=== PATIENT | female | born 1995 | race Caucasian/White ===

== ENCOUNTER 2019-02-11 22:58 | Outpatient (CLI) | payer OTHER ==
[~2019-02-11] VITALS: Ht 157.5 cm; Wt 60.9 kg
[2019-02-11] MEDS ORDERED: LR 1,000 ML IV ONE (23:30)
[2019-02-11] MEDS ORDERED: ONDANSETRON 4MG/2ML VIAL (J2405) IV SCH (23:30)
[2019-02-12 00:22] LABS: HEMATOCRIT 37.1 % (36.0-47.0); HEMOGLOBIN 12.6 g/dl (12.0-15.5); MEAN CORPUSCULAR HEMOGLOBIN 30.4 pg (27.0-33.0); MEAN CORPUSCULAR VOLUME 89.4 fl (80.0-96.0); PLATELET COUNT, AUTOMATED 189 10^3/uL (150-450); RED BLOOD COUNT 4.15 10^6/uL (4.00-5.40); WHITE BLOOD COUNT 14.1 10^3/uL (4.0-10.0)
[2019-02-12 01:00] LABS: ALBUMIN 3.1 GM/DL (3.2-5.2); ALT/SGPT 281 U/L (12-78); BILIRUBIN,TOTAL 1.2 MG/DL (0.2-1.0); BLOOD UREA NITROGEN 7 MG/DL (7-18); CALCIUM LEVEL 8.4 MG/DL (8.5-10.1); CARBON DIOXIDE LEVEL 27 MEQ/L (21-32); CHLORIDE LEVEL 102 MEQ/L (98-107); CREATININE FOR GFR 0.55 MG/DL (0.55-1.30); GLOMERULAR FILTRATION RATE > 60.0 (>60); GLUCOSE, FASTING 71 MG/DL (70-100); POTASSIUM SERUM 3.7 MEQ/L (3.5-5.1); SODIUM LEVEL 137 MEQ/L (136-145); TOTAL PROTEIN 6.9 GM/DL (6.4-8.2)
--- NOTE | 2019-02-12 01:29 | IPNPDOC ---
Text Note Date of Service The patient was seen on 02/12/19. NOTE 24 yo G1 at 21+1 weeks gestation presents to L&D with the complaint of ~24 hours of nausea and vomiting. She reports symptoms have been worsening throughout the day and she has vomited numerous times. She denies any recent travel, sick contacts, or ingestion of unusual foods. She denies any other symptoms to include fevers/chills, SOB, chest pain, dysuria, diarrhea. She also denies any abdominal pain. She also denies any obstetric complaints such as vaginal bleeding, leakage of fluid, or contractions. She reports having severe first trimester nausea and vomiting as well. Vitals - HR 83, BP 120/70, T 98.3 General - AAOX3, laying down in bed, NAD Abdomen - Gravid uterus, no fundal tenderness. No RUQ tenderness or RLQ tenderness to palpation. Extremities - No edema FHR: 150s. no ctx on toco Labs: CBC - 189>12.6/37.1<14.1 BMP - 137/3.7--102/27--<71 AST/ALT - 94/281 In triage Ms. Moody had no vomiting and was able to tolerate PO without issues. She felt much improved after IV fluids and IV zofran. Suspect Viral GI syndrome. Note made of elevated liver enzymes, though this is not uncommon in patients with significant nausea and vomiting. She has clinical evidence of gallbladder disease or appendicitis. I did recommend she call and schedule a fo llow up appointment in the office for next week and also considering repeating liver panel when feeling better. Patient to return to care for fevers/chills, SOB, persistent vomiting, or any other urgent concerns. All patient questions answered. eJnny Perez, DO A-FIB/CHADSVASC A-FIB History Current/History of A-Fib/PAF?: No VS,Fishbone, I+O VS, Fishbone, I+O Laboratory Tests 02/11/19 23:44 Red Blood Count 4.15, Mean Corpuscular Volume 89.4, Mean Corpuscular Hemoglobin 30.4, Mean Corpuscular Hemoglobin Concent 34.0, Red Cell Distribution Width 14.4, Calcium Level 8.4 L, Aspartate Amino Transf (AST/SGOT) 94 H, Alanine Aminotransferase (ALT/SGPT) 281 H, Alkaline Phosphatase 86, Total Bilirubin 1.2 H, Total Protein 6.9, Albumin 3.1 L JENNY PEREZ DO February 12, 2019 01:29
== END 2019-02-12 01:25 | disposition home or self-care (01) ==
LOC: M LDO 22:58
PROVIDERS: ATTEND Obstetrics & Gynecology
DX: O21.0 Mild hyperemesis gravidarum (principal); Z3A.21 21 weeks gestation of pregnancy
CPT/HCPCS: 36415; 80053; 85027; 96374; G0378; J2405

== ENCOUNTER 2019-06-06 13:26 | Outpatient (CLI) | payer OTHER ==
[~2019-06-06] VITALS: Ht 157.5 cm; Wt 74.2 kg
[2019-06-06] MEDS ORDERED: PRENTAB9 PO (13:48)
[2019-06-06] MEDS ORDERED: TUMS750C22 PO (13:48)
[2019-06-06 13:51] VITALS: BP 122/60
[2019-06-06] MEDS ORDERED: BICITRA 30ML SOLN UDC PO ONE (15:00)
[2019-06-06] MEDS ORDERED: AZITHROMYCIN INJ 500 MG, VIAL MATE ADAPTER 1 EACH in D5W 250 ML IV ONE (15:00)
--- NOTE | 2019-06-06 15:07 | IPNPDOC ---
Text Note Date of Service The patient was seen on 06/06/19. NOTE OB Considerations: - Centering PM Keke is a 24yo at 37+3wks by first timester US (SMITHA [id number]) presents for Decreased movement. She reports that she has not been feeling baby move much today. She tried performed kick counts and did not get t he 10 in 2hrs. She reports drinking at least 8 - 8oz glasses of water today. She reports irregular contractions. She denies headache, vision changes, RUQ pain, LOF or vaginal bleeding. VS: reviewed: normotensive, nontachycardic, afebrile GEN: WNWD, NAD ABD: Soft, Gravid, NT EXT: no Edema Limited Bedside US Cephalic presentation, Anterior placenta, +FCA, ADELITA 14.3cm Reactive NST, 150bpm, Moderate Variability, + accelerations, - decelerations Paint: rare contractions A/P: SIUP at 37+3wks presenting for DFM - resolved in triage. VS WNL, Reactive NST, ADELITA WNL. - Continue routine care - Discussed strict return precautions and labor precautions - Discussed kick counts - Follow up as scheduled on Se DO ANGEL Drew,Marina, I+O VSMarina, I+O Vital Signs Date Time Temp Pulse Resp B/P (MAP) Pulse Ox O2 Delivery O2 Flow Rate FiO2 06/06/19 13:51 97.8 86 18 122/60 (80) MISTY OWEN DO Jun 06, 2019 15:07
== END 2019-06-06 14:46 | disposition home or self-care (01) ==
LOC: M LDO 13:26
PROVIDERS: ATTEND Obstetrics & Gynecology
DX: O36.8130 Decreased fetal movements, third trimester, not applicable or unspecified (principal); Z3A.37 37 weeks gestation of pregnancy
CPT/HCPCS: 59025; 76815; G0378; G0463

== ENCOUNTER 2019-06-28 20:36 | Inpatient (IN) | payer OTHER ==
[~2019-06-28] VITALS: Ht 157.5 cm; Wt 76.4 kg
[~2019-06-28 20:36] MED LIST: PRENTAB9 PO; TUMS750C22 PO
[2019-06-28 21:01] VITALS: BP 139/76
[2019-06-28] MEDS ORDERED: LACTATED RINGER'S 1000 ML IV STA (21:34)
[2019-06-28] MEDS ORDERED: ACETAMINOPHEN 500 MG TAB PO ONE (21:45)
--- NOTE | 2019-06-28 22:00 | HPEPDOC ---
Obstetrical History & Physical General Date of Admission History of Present Illness OB Considerations: - DFM - Centering Keke is a 24yo at 40+4wks by 9wk US (SMITHA [id number]) presents for Decreased Movement. She was seen early today in clinic for DFM and had a RNST and normal ADELITA. She went home, started to feel more nauseated and persistent headache, frontal, has not tried relieving factors. She reports no movement since leaving the office today. She denies fevers, headache, chills, ctx, LOF, or vaginal bleeding. 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 history Past Medical History Medical History Denies Surgical History: Other (Ovarian Cystectomy - 2007) Family History Significant Family History: No pertinent family hx Social History Marital Status: Family situation: Spouse/partner home Psychosocial History: No pertinent psych hx * Smoker: non-smoker Alcohol: Denies Drugs: denies Imunizations Tdap status: current Influenza Status: needs Allergies Coded Allergies: No Known Allergies (Unverified , 02/11/19) Medications Scheduled No.137/Iron/Folic Acd ( Vitamin Tablet) 1 Each Tablet, 1 TAB PO DAILY Scheduled PRN Calcium Carbonate (Tums) 300 Mg Tab.chew, 1 TAB PO BIDP PRN for HEARTBURN Physical Examination Physical Examination GENERAL: Alert and oriented times three. ABDOMEN: Gravid and non-tender to touch. FETUS: Is vertex (VTX) by Exam/Bradley. EXTREMITIES: No edema. Pelvis Adequate for trial of labor EFW 3600gm TAUS: Cephalic, +FCA, Anterior Placenta, ADELITA 6.8cm Laboratory Data Urine Culture: No Growth Pertinent Laboratoy Data Blood Type: O+ RBC Antibody Screen: Negative HIV: Negative Hepatitis B: Negative Hepatitis C: Unknown Rapid Plasma Reagin: Nonreactive Rubella: Immune Varicella: Immune Chlamydia/Gonorrhea: Negative Group B Streptococcus: Negative Quad Screen Test: Declined Cystic Fibrosis: Declined Anatomy Ultrasound Ultrasound Date: February 08, 2019 Placenta Location: Anterior Normal Anatomy: Yes Placenta Previa: No Steroid Therapy Steroid Therapy: No Vaginal Examination Dilation: 2cm Effacement: 50% Station: -3 Cervical Consistency: Soft Cervical Position: Posterior Presentation: Cephalic presentation Position: Vertex (occiput) Assessment Heart Rate (FHR): 140 Variability: Moderate Accelerations: Positive Decelerations: Late (one) Tocometer Contractions: Yes Frequency: irregular Multi-drug resistant Organism: No history of MDRO Assessment/Plan Assessment Keke is a 24yo at 40+4wks, Cat II FHT with one late deceleration in the setting of Term Decreased Movement. Moderate variability with accelerations now, resolved late with position changes. However, given Cat II on presentation with DFM at term, recommended admission with induction of labor. Plan Admit and orient. Fibre Optic Cable Splicer and consent. Continuous Monitoring. VS and I&O per protocol. Diet: Clear. Group B Streptococcus (GBS) [negative]. Labs and intravenous (IV) per unit protocol. Counseled on Pitocin and induction of labor (IOL). Lactated Ringers (LR): Bolus [1000] mL, then at [125] mL/hr. IOL Start with FB. Start pitocin with delivery of the FB. Faby Owen DO. Labor and Delivery Counseling Counseled patient on IOL, Transfusions and risk of transfusions (reactions and blood borne infections), monitoring (external and internal), infection and need for antibiotics, obstetric lacerations, operative deliveries (forceps and vacuum) and indication for section. Patient verbalized understanding and all questions were answered to patient's apparent satisfaction. FABY OWEN DO Jun 28, 2019 22:00
[2019-06-28 22:38] VITALS: BP 133/81
[2019-06-28 23:06] LABS: HEMATOCRIT 35.9 % (36.0-47.0); MEAN CORPUSCULAR HEMOGLOBIN 28.4 pg (27.0-33.0); MEAN CORPUSCULAR HGB CONC 33.4 g/dl (32.0-36.5); MEAN CORPUSCULAR VOLUME 84.9 fl (80.0-96.0); PLATELET COUNT, AUTOMATED 144 10^3/uL (150-450); RED BLOOD COUNT 4.23 10^6/uL (4.00-5.40); WHITE BLOOD COUNT 9.9 10^3/uL (4.0-10.0)
[2019-06-29] VITALS (38 sets, daily range): BP systolic 92–199; BP diastolic 50–93
[2019-06-29] MEDS: LR 1,000 ML IV SCH ×3 (00:05→17:24)
[2019-06-29] MEDS ORDERED: OXYTOCIN 30 UNITS IN 0.9% NaCl 500ML IV BAG (J2590) As Ordered ONE (13:35)
[2019-06-29] MEDS ORDERED: OXYTOCIN DRIP 30 UNITS in IV 1 EA IV SCH (14:00)
--- NOTE | 2019-06-29 15:54 | IPN ---
DATE: 06/29/2019 This lady is a 24-year-old, 2, para 0, who is at 40 and 5 weeks of gestation, came in because of decreased movement from the clinic, and she had a normal amniotic fluid index (ADELITA) but a category 2 strip. She was brought into labor and delivery and after counseling it was elected to go ahead and have induction of labor. She had a category 2 heart tracing with one late decelerations in the setting of term, decreased movement, moderate variability. She has had induction of labor with [place] bulb and she was left overnight. Nursing noted a category 1 strip. No contractions were noted at all. At 1300 hours, 06/29/2019, examination revealed no change the cervix. No bloody show. Category 1 strip. Therefore, we decided to augment her with Pitocin and if there is appropriate contractions remove the [place] catheter, do an artifical rupture of membranes (AROM) to evaluate amniotic fluid status. She is group B streptococcus (GBS) negative. The rest examination unremarkable. The patient expressed understanding care of procedure and the plan of care. Her vital signs at the present time her blood pressure is 125/63, respirations are 18, pulse 88, temperature is 98.0. Her hemoglobin is 12.0, hematocrit 35.9 and platelets are 144. White count is 9.9. In summary, we have an early term gestation with a nonreassuring heart category 2 for induction of labor.
--- NOTE | 2019-06-29 18:18 | IPN ---
DATE: 06/29/2019 This lady was reassessed at 1700 hours. She had a [place] bulb placed because of induction of labor, decreased movement and late decelerations. She did apparently have an ADELITA of 6.1 but had a category II strip. We removed the [place] bulb catheter. The cervix is very posterior 2 cm -3 station. With difficulty we did an Artificial rupture of membranes (AROM). We had meconium stained liquor which is thick, pasty meconium. No particulate and no runny indicating recent bowel movement. Category II strip was noted with increasing fluids. Baby seemed to appreciate that gesture and with oxygen and increased fluids we came back to a category one strip. Our plan of management is to continue low-dose Pitocin and reevaluate the patient in 2 hours time. Her blood pressure presently is 127/74, respirations 18, pulse 75, temperature 98.0. In summary we have an early term with some category II strips, reduced variability. Anticipate slow progress.
[2019-06-29] MEDS ORDERED: FENTANYL 2MCG/ML ROPIVACAINE 0.2% IN 0.9% NACL 100ML IVBAG As Ordered ONE (20:07)
[2019-06-29] MEDS ORDERED: ONDANSETRON 4MG/2ML VIAL (J2405) IV PRN (21:01)
[2019-06-29] MEDS ORDERED: diphenhydrAMINE INJ 50MG/ML VIAL (J1200) IV PRN (21:01)
[2019-06-29] MEDS ORDERED: EPIDURAL/PCA KEYS XX PRN (21:01)
[2019-06-29] MEDS ORDERED: EPIDURAL COMMENT XX SCH (21:01)
[2019-06-29] MEDS ORDERED: REFRIGERATOR IV KEYS XX PRN (21:01)
[2019-06-29] MEDS ORDERED: ePHEDrine SULFATE 25 MG/5 ML(5MG/ML) SYRINGE IV PRN (21:01)
[2019-06-29] MEDS ORDERED: NALOXONE INJ 0.4 MG/1 ML VIAL (J2310) IV PRN (21:01)
[2019-06-29] MEDS ORDERED: LACTATED RINGER'S 1000 ML IV PRN (21:01)
[2019-06-29] MEDS ORDERED: FENTANYL/ROPIVACAINE/NACL BAG 100 ML EPIDURAL SCH (21:01)
--- NOTE | 2019-06-29 22:15 | IPN ---
DATE: 06/29/2019 Evaluating Mrs. Mcadams post epidural. This lady had a [place] bulb placed because of induction of labor, decreased movement, late decelerations. She had an epidural placed. She has a category one strip with good contractions. She is presently 2 cm anterior with molding. No evidence of amniotic fluid. Meconium stained liquor was noted. Pitocin is at 6 milliunits per minute, and she is having adequate contractions for same. Epidural is taking effect. Her blood pressure presently is 117/55, respirations 18, pulse 77, temperature is 98.2. Our plan is to recheck her in 3 or 4 hours and increase the Pitocin if needed. Presently safe to proceed. The patient expresses understanding of the plan of care.
--- NOTE | 2019-06-29 23:55 | IPN ---
DATE: 06/29/2019 This lady had induction of labor for decreased movement and had one late deceleration. She has been at 2 cm anterior with molding for a significant period of time. She was on 6 milliunits of Pitocin. She was evaluated post epidural, and she was found to be fully dilated at a minus one station. No amniotic fluid was noted. Category one strip with some tachycardia at 160. However, safe to proceed, and we have dialed down the Pitocin to 4 milliunits, and it appears that we were having more effective contractions. Blood pressure presently is 127/63, respirations are not recorded, pulse is 89, temperature is not recorded. The last temperature was at 2015 hours, and it was 97.0. Our plan is to let her labor down. Anticipate, if she has good pushing, to have a vaginal delivery. Safe to proceed.
[2019-06-30] VITALS (7 sets, daily range): BP systolic 126–152; BP diastolic 57–104
[2019-06-30] MEDS ORDERED: OXYTOCIN DRIP 30 UNITS in IV 1 EA IV SCH (01:41)
[2019-06-30] MEDS ORDERED: ANUSOL HC CREAM 30GM TOP PRN (01:45)
[2019-06-30] MEDS ORDERED: RHOGAM 300 MCG (1500 IU) INJ (J2790) IM SCH (01:45)
[2019-06-30] MEDS ORDERED: DIBUCAINE 1% OINTMENT 30GM TOP PRN (01:45)
[2019-06-30] MEDS ORDERED: IBUPROFEN 600 MG TAB PO PRN (01:45)
[2019-06-30] MEDS ORDERED: METHYLERGONOVINE MALEATE 0.2 MG TAB PO PRN (01:45)
[2019-06-30] MEDS ORDERED: MEASLES,MUMPS,RUBELLA VACCINE INJ (MMR-II) (90707) SC SCH (01:45)
[2019-06-30] MEDS ORDERED: OXYTOCIN INJ 10 UNITS/ML VIAL (J2590) IV ONE (01:45)
[2019-06-30] MEDS ORDERED: DOCUSATE SODIUM 100 MG CAP PO PRN (01:45)
[2019-06-30] MEDS ORDERED: ACETAMINOPHEN TAB 650MG DOSE (2X325MG) PO PRN (01:45)
[2019-06-30] MEDS ORDERED: MOM 30ML SUSPENSION UDC PO PRN (01:45)
[2019-06-30 01:47] LABS: CORD GAS ABE V -5.1; CORD GAS HCO3 V 21.2 MEQ/L; CORD GAS O2 SAT V 67.6 %; CORD GAS PCO2 V 43.5 mmHg; CORD GAS PH V 7.305 UNITS; CORD GAS SBC V 19.6 MEQ/L; CORD GAS TCO2 V 22.5 MEQ/L
[2019-06-30 01:48] LABS: CORD GAS ABE A -4.3; CORD GAS HCO3 A 23.3 MEQ/L; CORD GAS O2 SAT A 46.6 %; CORD GAS PCO2 A 52.6 mmHg; CORD GAS PH A 7.265 UNITS; CORD GAS PO2 A 22.5 mmHg; CORD GAS SBC A 19.8 MEQ/L
[2019-06-30] MEDS: IBUPROFEN 800 MG TAB PO PRN ×2 (02:47→15:39)
[2019-06-30] MEDS ORDERED: OXYTOCIN INJ 10 UNITS/ML VIAL (J2590) As Ordered ONE (02:51)
--- NOTE | 2019-06-30 06:05 | IPN ---
DATE: 06/30/2019 The patient and requested circumcision of their male . After discussing risks and benefits of circumcision, medical and nonmedical indications, penile block and aftercare, expressed understanding of penile block, aftercare and bleeding, signed the consent form. We await clearance by the roving hauler. All questions were answered. 20-minute discussion.
[2019-06-30] MEDS: PRENATAL VITAMINS CHEWABLE TABLET PO SCH (08:03)
[2019-06-30] MEDS: ACETAMINOPHEN 500 MG TAB PO PRN ×2 (08:04→19:05)
--- NOTE | 2019-06-30 09:32 | DN ---
DATE: 06/30/2019 This lady is a 2 now para 1 admitted for induction of labor at 44 weeks of gestation because of decreased movement and nonreassuring tracing. She had an epidural in place had a spontaneous vaginal delivery of a live male weighing 6 pounds 13 ounces 3080 grams of 9 and 9 at 1 and 5 minutes respectfully. Arterial pH was 7.26, base excess is -4.3, venous pH was 7.30, base excess of -5.1. There was terminal meconium at delivery. She required a midline episiotomy because of a tight introitus. Placenta delivered spontaneously thereafter. Three-vessel cord membranes and tissues intact. Anterior posterior lateral foy were normal. Sphincter was tight midline episiotomy was oversewn usual fashion. Good hemostasis was secured. The patient baby tolerating procedure well.
[2019-07-01] MEDS: IBUPROFEN 800 MG TAB PO PRN (02:00)
[2019-07-01 06:03] VITALS: BP 118/73
[2019-07-01 06:41] LABS: HEMATOCRIT 34.7 % (36.0-47.0); HEMOGLOBIN 11.4 g/dl (12.0-15.5); MEAN CORPUSCULAR HEMOGLOBIN 28.1 pg (27.0-33.0); MEAN CORPUSCULAR HGB CONC 32.9 g/dl (32.0-36.5); MEAN CORPUSCULAR VOLUME 85.5 fl (80.0-96.0); PLATELET COUNT, AUTOMATED 143 10^3/uL (150-450); RED BLOOD COUNT 4.06 10^6/uL (4.00-5.40); WHITE BLOOD COUNT 12.8 10^3/uL (4.0-10.0)
--- NOTE | 2019-07-01 06:57 | IPNPDOC ---
Progress Note Date of Service: Jul 01, 2019 Day#: 1 Progress Note Keke is a 24yo [id number] s/p uncomplicated at 40+6wks on 30Jun2019 of a male 6 pounds 13 ounces ([3080] grams) with post vaginal laceration and repair, doing well day # [1]. She has been ambulating, voiding spontaneously without issue and tolerating regular diet. Had first bowel movement. Breast feeding without issue. Reports lochia is like a normal period. Patient is ambulating well. is currently under bili lights. She denies headache, vision changes, RUQ pain. OBJECTIVE: VITAL SIGNS: 2 mild range blood pressures, otherwise normal, afebrile. Alert and oriented times three. Abdomen: Fundus firm at U-1. Soft, NTTP. [Minimal] lochia. ASSESSMENT: Keke is a 24yo [id number] s/p uncomplicated at 40+6wks on 30Jun2019 of a male 6 pounds 13 ounces ([3080] grams) with post vaginal lacer ation and repair, doing well day # [1]. Vitals notable for 2 mild range BP, otherwise normal limits, afebrile, hemodynamically stable with no evidence of infection. If continue to be mild range, would recommend Pre Eclampsia labs - currently no s/sx of Pre Eclampsia. PLAN: 1. Continue Routine care. 2. Tylenol and Motrin for pain. 3. Encourage breast feeding and ambulation. 4. Undecided for contraception. 5. Encouraged hydration, pelvic rest. 6. Discharge to home likely Friday due to Infant needing Bili Lights. Faby Owen, VS, I&O, 24H, Marina Vital Signs/I&O Vital Signs Date Time Temp Pulse Resp B/P (MAP) Pulse Ox O2 Delivery O2 Flow Rate FiO2 07/01/19 06:03 98.3 68 16 118/73 (88) 06/30/19 04:19 99 I&O- Last 24 Hours up to 6 AM 07/01/19 06:00 Intake Total 240 ml Output Total 400 ml Balance -160 ml Laboratory Data 24H LABS Laboratory Tests 2 07/01/19 06:07: Nucleated Red Blood Cells % (auto) 0.0 CBC/BMP Laboratory Tests 07/01/19 06:07 Red Blood Count 4.06, Mean Corpuscular Volume 85.5, Mean Corpuscular Hemoglobin 28.1, Mean Corpuscular Hemoglobin Concent 32.9, Red Cell Distribution Width 15.6 H FABY OWEN DO Jul 01, 2019 06:57
[2019-07-01] MEDS: PRENATAL VITAMINS CHEWABLE TABLET PO SCH (09:00)
[2019-07-01 18:10] VITALS: BP 134/92
[2019-07-02 05:49] VITALS: BP 138/82
[2019-07-02] MEDS ORDERED: DIBU10OI TOP (08:41)
[2019-07-02] MEDS ORDERED: COLA100C5 PO (08:41)
[2019-07-02] MEDS ORDERED: IBUP80TA PO (08:41)
[2019-07-02] MEDS ORDERED: ACET-683 PO (08:41)
[2019-07-02] MEDS: PRENATAL VITAMINS CHEWABLE TABLET PO SCH (09:00)
--- NOTE | 2019-07-02 09:10 | DSES ---
DATE OF ADMISSION: 06/28/2019 DATE OF DISCHARGE: 07/02/2019 This lady is a 24-year-old 2, para 1, had decreased movement and was admitted for induction of labor at 40 and 4 weeks of gestation. She had a spontaneous vaginal delivery with epidural in place of a male 6 pounds 13 ounces 3880 grams scores of 9 and 9 at 1 and 5 minutes, respectively. Arterial pH 7.26, base excess -4.3, venous pH 7.30, base excess -5.1. There was terminal meconium at delivery and the baby required some vigorous suctioning because of swallowing of amniotic fluid. She did have a midline episiotomy, which was oversewn in the usual fashion. Admitting hemoglobin was 12.0, hematocrit 35.9 and platelets 144. Discharge hemoglobin 11.4, hematocrit 34.7 and platelets were 143. Vital signs: Her blood pressure on discharge was 138/82, respirations 16, pulse 91 and temperature 97.3. We discussed phlebitis, cystitis, mastitis, endometritis, cellulitis, diet, exercise, pain management, perineal/breast/wound care. The patient is planning on discussing control at her 6-week checkup. She also has made a 6-week checkup with [facility]. On discharge, she is normocephalic, atraumatic. Neck with full range of motion. Pupils equal and reactive to light. Distal pulses symmetric. No evidence of DVT, PE or superficial phlebitis. Chest is clear bilaterally to the bases. No wheezes or rhonchi. No CVA tenderness. Abdomen is soft. Uterus 2 below. Lochia is moderate. Four quadrant bowel sounds are noted. Perineum is healing. She has no rashes, lesions or pruritus. No arthralgia, myalgia. No complaint joint pain. No complaint cough, wheeze, shortness of breath or dyspnea on exertion. No nausea, vomiting, diarrhea or constipation. No frequency or urgency. In summary, we have a term gestation, delivered a live male discharged to followup in the office in six weeks' time. All questions were answered. [facility]
== END 2019-07-02 12:00 | disposition home or self-care (01) | DRG 807 ==
LOC: M LDO 20:36 → M LDI 22:17 → M OBS 06-30 04:09
PROVIDERS: ADMIT Obstetrics & Gynecology; ATTEND Obstetrics & Gynecology
PROC: 3E0P7GC Introduction of Other Therapeutic Substance into Female Reproductive, Via Natural or Artificial Opening (ICD-10-PCS; 2019-06-28)
PROC: 10907ZC Drainage of Amniotic Fluid, Therapeutic from Products of Conception, Via Natural or Artificial Opening (ICD-10-PCS; 2019-06-29)
PROC: 10E0XZZ Delivery of Products of Conception, External Approach (ICD-10-PCS; principal; 2019-06-30)
PROC: 0W8NXZZ Division of Female Perineum, External Approach (ICD-10-PCS; 2019-06-30)
DX: O76 Abnormality in fetal heart rate and rhythm complicating labor and delivery (principal); Z37.0 Single live birth; O36.8130 Decreased fetal movements, third trimester, not applicable or unspecified; O48.0 Post-term pregnancy; O77.0 Labor and delivery complicated by meconium in amniotic fluid; Z3A.40 40 weeks gestation of pregnancy

== ENCOUNTER 2019-11-20 21:52 | Emergency (ER) | payer OTHER ==
[~2019-11-20] VITALS: Ht 157.5 cm; Wt 65.8 kg
[2019-11-20 21:52] VITALS: BP 134/62
[~2019-11-20 21:52] MED LIST changes: +ACET-683 PO; +COLA100C5 PO; +DIBU10OI TOP; +IBUP80TA PO
[2019-11-20] MEDS ORDERED: ONDA4TAB6 PO (22:35)
[2019-11-20] MEDS ORDERED: ACETAMINOPHEN TAB 650MG DOSE (2X325MG) PO ONE (22:45)
[2019-11-20] MEDS ORDERED: ONDANSETRON 4 MG ORAL DISINTEGRATING TAB (Q0162 PER 1MG) PO ONE (22:45)
== END 2019-11-20 22:57 | disposition home or self-care (01) ==
LOC: M ED 21:52
DX: S06.0X0A Concussion without loss of consciousness, initial encounter (principal); V98.3XXA Accident to, on or involving ski lift, initial encounter; Y92.838 Other recreation area as the place of occurrence of the external cause; Y93.23 Activity, snow (alpine) (downhill) skiing, snowboarding, sledding, tobogganing and snow tubing; Y99.8 Other external cause status
CPT/HCPCS: 99282; Q0162